=== PATIENT | female | born 1940 | race Asian ===

== ENCOUNTER 2016-12-31 12:53 | Outpatient (CLI) | payer OTHER | END 2016-12-31 18:18 | disposition home or self-care (01) | LOC: SMA 12:53 | PROVIDERS: ATTEND General Practice | DX: Z12.31 Encounter for screening mammogram for malignant neoplasm of breast (principal); I51.7 Cardiomegaly; I70.90 Unspecified atherosclerosis; M47.899 Other spondylosis, site unspecified; M41.80 Other forms of scoliosis, site unspecified; Z85.038 Personal history of other malignant neoplasm of large intestine | CPT/HCPCS: 71020; G0202 ==

== ENCOUNTER 2017-01-28 10:25 | Outpatient (CLI) | payer OTHER | END 2017-01-28 17:44 | disposition home or self-care (01) | LOC: SRD 10:25 | PROVIDERS: ATTEND General Practice | DX: M17.12 Unilateral primary osteoarthritis, left knee (principal); M85.88 Other specified disorders of bone density and structure, other site | CPT/HCPCS: 73564 ==

== ENCOUNTER 2017-06-07 09:59 | Outpatient (CLI) | payer OTHER | END 2017-06-07 19:35 | disposition home or self-care (01) | LOC: SUS 09:59 | PROVIDERS: ATTEND General Practice | DX: E04.2 Nontoxic multinodular goiter (principal) | CPT/HCPCS: 76536-TC ==

== ENCOUNTER → 2018-01-29 | Outpatient (CLI) | payer OTHER | END | disposition home or self-care (01) | LOC: SUS 08:05 | PROVIDERS: ATTEND General Practice | DX: Z12.31 Encounter for screening mammogram for malignant neoplasm of breast (principal); I70.0 Atherosclerosis of aorta; K76.0 Fatty (change of) liver, not elsewhere classified; R10.2 Pelvic and perineal pain; R92.1 Mammographic calcification found on diagnostic imaging of breast | CPT/HCPCS: 71046-TC; 76700-TC; 76856-TC; 77067 ==

== ENCOUNTER 2018-04-04 08:03 | Outpatient (CLI) | payer OTHER ==
[2018-04-04] MEDS ORDERED: DIATR MEGLU/DIATRIZ SOD 30 ML SOLUTION PO ONE (08:36)
== END 2018-04-04 19:07 | disposition home or self-care (01) ==
LOC: SCT 08:03
PROVIDERS: ATTEND General Practice
DX: R19.00 Intra-abdominal and pelvic swelling, mass and lump, unspecified site (principal); K43.9 Ventral hernia without obstruction or gangrene; K44.9 Diaphragmatic hernia without obstruction or gangrene
CPT/HCPCS: 74176; Q9964